=== PATIENT | male | born 1970 | race Hispanic/Latino ===

== ENCOUNTER 2019-02-22 22:10 | Emergency (ER) | payer BC ==
[2019-02-22] MEDS ORDERED: NA CHLORIDE 0.9% 1,000 ML ONE (23:09)
[2019-02-22 23:20] LABS: Absolute Lymphocytes (CBC) 2.9 K/uL (0.7-4.9); Basophils % 0.7 % (0-1.3); Lymphocytes % 21.4 % (15.3-44.8); RBC Red Blood Cell Count 6.04 M/uL (4.33-5.43)
[2019-02-22 23:22] LABS: Protime INR 1.01
[2019-02-22 23:43] LABS: ALT/SGPT 61 U/L (12-78); AST/SGOT 23 U/L (15-37); Albumin 4.4 g/dL (3.4-5.0); Alkaline Phosphatase 74 U/L (45-117); BUN Blood Urea Nitrogen 15 mg/dL (7-18); Bicarbonate 27 mmol/L (21-32); Bilirubin Direct 0.2 mg/dL (0-0.2); Bilirubin Total 0.6 mg/dL (0.2-1.0); Glucose Level 269 mg/dL (74-106); Magnesium 2.1 mg/dL (1.8-2.4); NT PRO-BNP 7 pg/mL (<125); Potassium 3.9 mmol/L (3.5-5.1); Protein, Total 8.4 g/dL (6.4-8.2); Sodium Level 138 mmol/L (136-145); Troponin (Emerg Dept Use Only) < 0.02 ng/mL (0.0-0.045)
--- NOTE | 2019-02-23 01:15 | ER ---
Nurse's Notes [facility] Name: Jere Khan Age: 48 yrs Sex: Male : 1970 Arrival Date: 02/22/2019 Time: 22:12 Bed 16 Private MD: Diagnosis: Essential (primary) hypertension;Dehydration Presentation: 02/22 22:22 Presenting complaint: Patient states: sudden onset of fatigue while at work. pt took BP ak1 at work 155/97. Transition of care: patient was not received from another setting of care. Onset of symptoms was February 22, 2019. Risk Assessment: Do you want to hurt yourself or someone else? Patient reports no desire to harm self or others. Initial Sepsis Screen: Does the patient meet any 2 criteria? No. Patient's initial sepsis screen is negative. Does the patient have a suspected source of infection? No. Patient's initial sepsis screen is negative. Care prior to arrival: None. 22:22 Method Of Arrival: Ambulatory ak1 22:22 Acuity: JAMAR 3 ak1 Triage Assessment: 22:23 General: Appears in no apparent distress. Behavior is calm, cooperative. Pain: Denies ak1 pain. Historical: - Allergies: 22:23 No Known Allergies; ak1 - Home Meds: 22:23 Metformin Oral [Active]; ak1 - PMHx: 22:23 Diabetes - NIDDM; ak1 - PSHx: 22:23 None; ak1 - Immunization history:: Adult Immunizations unknown. - Social history:: Smoking status: Patient/guardian denies using tobacco. - Ebola Screening: : No symptoms or risks identified at this time. Screenin:37 Abuse screen: Denies threats or abuse. Nutritional screening: No deficits noted. jd3 Tuberculosis screening: No symptoms or risk factors identified. Fall Risk Ambulatory Aid- None/Bed Rest/Nurse Assist (0 pts). Gait- Normal/Bed Rest/Wheelchair (0 pts) Mental Status- Oriented to own ability (0 pts). Total Marie Fall Scale indicates No Risk (0-24 pts). Assessment: 22:35 General: Appears in no apparent distress. uncomfortable, Behavior is calm, cooperative, jd3 appropriate for age, Reports high blood pressure. Pain: Denies pain. Neuro: Level of Consciousness is awake, alert, obeys commands, Oriented to person, place, time, situation, Denies weakness dizziness, headache. Cardiovascular: Denies chest pain, Heart tones S1 S2 present Capillary refill < 3 seconds Patient's skin is warm and dry. Respiratory: Airway is patent Respiratory effort is even, unlabored, Respiratory pattern is regular, symmetrical, Breath sounds are clear bilaterally. Denies cough, shortness of breath. GI: No signs and/or symptoms were reported involving the gastrointestinal system. Patient currently denies constipation, diarrhea, nausea, vomiting. : No signs and/or symptoms were reported regarding the genitourinary system. EENT: No signs and/or symptoms were reported regarding the EENT system. Derm: Skin is intact, Skin is dry, Skin is normal, Skin temperature is warm. Musculoskeletal: Circulation, motion, and sensation intact. Range of motion: intact in all extremities. 23:39 Reassessment: Patient appears in no apparent distress at this time. No changes from [facility] previously documented assessment. Patient and/or family updated on plan of care and expected duration. Pain level reassessed. Patient is alert, oriented x 3, equal unlabored respirations, skin warm/dry/pink. Patient denies pain at this time. 02/23 00:45 Reassessment: Patient appears in no apparent distress at this time. Patient and/or jd3 family updated on plan of care and expected duration. Pain level reassessed. Patient is alert, oriented x 3, equal unlabored respirations, skin warm/dry/pink. Patient denies pain at this time. 01:16 Reassessment: Patient appears in no apparent distress at this time. Patient and/or jd3 family updated on plan of care and expected duration. Pain level reassessed. Patient is alert, oriented x 3, equal unlabored respirations, skin warm/dry/pink. reported understanding of discharge instructions. Patient denies pain at this time. Vital Signs: 02/22 22:23 BP 154 / 93; Pulse 98; Resp 18; Temp 98.7(O); Pulse Ox 98% on R/A; Weight 95.25 kg (R); ak1 Height 5 ft. 10 in. (177.80 cm) (R); Pain 0/10; 22:37 BP 139 / 89; Pulse 98; Resp 17 S; Pulse Ox 97% on R/A; Pain 0/10; jd3 23:39 BP 149 / 95; Pulse 95; Resp 16 S; Pulse Ox 98% on R/A; jd3 02/23 00:08 BP 128 / 82 Supine; Pulse 86; jd3 00:08 BP 151 / 89 Sitting; Pulse 86; jd3 00:08 BP 155 / 95 Standing; Pulse 84; Resp 16 S; Pulse Ox 100% on R/A; jd3 02/22 22:23 Body Mass Index 30.13 (95.25 kg, 177.80 cm) ak1 ED Course: 02/22 22:12 Patient arrived in ED. ds1 22:22 Triage completed. ak1 22:23 Arm band placed on Patient placed in an exam room, on a stretcher, on pulse oximetry, ak1 Patient notified of wait time. 22:30 Lang Martines NP is PHCP. pm1 22:30 Mike Contreras MD is Attending Physician. pm1 22:34 Jorje Sharp RN is Primary Nurse. jd3 23:03 Inserted saline lock: 20 gauge in left antecubital area, using aseptic technique. Blood jd3 collected. 23:13 X-ray completed. Portable x-ray completed in exam room. Patient tolerated procedure kw well. 23:15 XRAY Chest (1 view) In Process Unspecified. EDMS 23:29 CT completed. Patient tolerated procedure well. Patient moved to CT via wheelchair. eh Patient moved back from CT. 23:36 CT Head Brain wo Cont In Process Unspecified. EDMS 23:41 Patient has correct armband on for positive identification. Bed in low position. Call jd3 light in reach. Side rails up X 1. Adult w/ patient. 02/23 01:15 No provider procedures requiring assistance completed. IV discontinued, intact, jd3 bleeding controlled, No redness/swelling at site. Pressure dressing applied. Administered Medications: 02/22 23:41 Drug: NS 0.9% 1000 ml Route: IV; Rate: 1000 ml; Site: left antecubital; jd3 02/23 01:17 Follow up: Response: No adverse reaction; IV Status: Completed infusion; IV Intake: jd3 1000ml Intake: 01:17 IV: 1000ml; Total: 1000ml. jd3 Outcome: 00:55 Discharge ordered by . pm1 01:15 Discharged to home ambulatory, with family. jd3 01:15 Condition: stable 01:15 Discharge instructions given to patient, family, Instructed on discharge instructions, follow up and referral plans. Demonstrated understanding of instructions, follow-up care. 01:17 Patient left the ED. jd3 Signatures: Dispatcher [employer] EDDave García Demi ds1 Asya Monroy Amber, RN RN ak1 Lang Maritnes, [employer] FACILITATOR pm1 Jorje Sharp RN RN jd3 Corrections: (The following items were deleted from the chart) 00:09 00:08 BP 155 / 95 Standing; Pulse 84bpm; jd3 jd3
--- NOTE | 2019-02-23 01:18 | EDPHYS ---
Physician Documentation [facility] Name: Jere Khan Age: 48 yrs Sex: Male : 1970 Arrival Date: 02/22/2019 Time: 22:12 Bed 16 Private MD: ED Physician Mike Contreras HPI: 02/22 22:54 This 48 yrs old Male presents to ER via Ambulatory with complaints of High pm1 Blood Pressure. 22:54 The patient has elevated blood pressure and discovered this At work. Onset: The pm1 symptoms/episode began/occurred just prior to arrival. Modifying factors: The symptoms are aggravated by activity, Working in the heat, The symptoms are alleviated by rest. Associated signs and symptoms: Pertinent positives: dizziness, Pertinent negatives: chest pain, headache, nausea, visual changes, vomiting. Severity of symptoms: in the emergency department the blood pressure is now normal. The blood pressure problem is resolved. The patient has not experienced similar symptoms in the past. The patient has not recently seen a physician. Patient works at the [employer]. Patient wearing his FRC and mask and was working out in the heat. Patient started feeling dizzy and fatigued. Went to the break room and discovered that his blood pressure was high. His symptoms have resolved with rest and with arrival to the ER. Historical: - Allergies: 22:23 No Known Allergies; ak1 - Home Meds: 22:23 Metformin Oral [Active]; ak1 - PMHx: 22:23 Diabetes - NIDDM; ak1 - PSHx: 22:23 None; ak1 - Immunization history:: Adult Immunizations unknown. - Social history:: Smoking status: Patient/guardian denies using tobacco. - Ebola Screening: : No symptoms or risks identified at this time. ROS: 22:54 Eyes: Negative for injury, pain, redness, and discharge, ENT: Negative for injury, pm1 pain, and discharge, Neck: Negative for injury, pain, and swelling, Cardiovascular: Negative for chest pain, palpitations, and edema, Respiratory: Negative for shortness of breath, cough, wheezing, and pleuritic chest pain, Abdomen/GI: Negative for abdominal pain, nausea, vomiting, diarrhea, and constipation, Back: Negative for injury and pain, : Negative for injury, bleeding, discharge, and swelling, MS/Extremity: Negative for injury and deformity, Skin: Negative for injury, rash, and discoloration. 22:54 Constitutional: Positive for fatigue, Negative for body aches, chills, fever. 22:54 Neuro: Positive for dizziness, Negative for headache, numbness, syncope, tingling, weakness. Exam: 22:54 Constitutional: This is a well developed, well nourished patient who is awake, alert, pm1 and in no acute distress. Head/Face: Normocephalic, atraumatic. Eyes: Pupils equal round and reactive to light, extra-ocular motions intact. Lids and lashes normal. Conjunctiva and sclera are non-icteric and not injected. Cornea within normal limits. Periorbital areas with no swelling, redness, or edema. ENT: Nares patent. No nasal discharge, no septal abnormalities noted. Tympanic membranes are normal and external auditory canals are clear. Oropharynx with no redness, swelling, or masses, exudates, or evidence of obstruction, uvula midline. Mucous membranes moist. Neck: Trachea midline, no thyromegaly or masses palpated, and no cervical lymphadenopathy. Supple, full range of motion without nuchal rigidity, or vertebral point tenderness. No Meningismus. Chest/axilla: Normal chest wall appearance and motion. Nontender with no deformity. No lesions are appreciated. Cardiovascular: Regular rate and rhythm with a normal S1 and S2. No gallops, murmurs, or rubs. Normal PMI, no JVD. No pulse deficits. Respiratory: Lungs have equal breath sounds bilaterally, clear to auscultation and percussion. No rales, rhonchi or wheezes noted. No increased work of breathing, no retractions or nasal flaring. Abdomen/GI: Soft, non-tender, with normal bowel sounds. No distension or tympany. No guarding or rebound. No evidence of tenderness throughout. Back: No spinal tenderness. No costovertebral tenderness. Full range of motion. Skin: Warm, dry with normal turgor. Normal color with no rashes, no lesions, and no evidence of cellulitis. MS/ Extremity: Pulses equal, no cyanosis. Neurovascular intact. Full, normal range of motion. 22:54 Neuro: Orientation: is normal, Motor: moves all fours, Sensation: is normal, no obvious gross deficits. Vital Signs: 22:23 BP 154 / 93; Pulse 98; Resp 18; Temp 98.7(O); Pulse Ox 98% on R/A; Weight 95.25 kg (R); ak1 Height 5 ft. 10 in. (177.80 cm) (R); Pain 0/10; 22:37 BP 139 / 89; Pulse 98; Resp 17 S; Pulse Ox 97% on R/A; Pain 0/10; jd3 23:39 BP 149 / 95; Pulse 95; Resp 16 S; Pulse Ox 98% on R/A; jd3 02/23 00:08 BP 128 / 82 Supine; Pulse 86; jd3 00:08 BP 151 / 89 Sitting; Pulse 86; jd3 00:08 BP 155 / 95 Standing; Pulse 84; Resp 16 S; Pulse Ox 100% on R/A; jd3 02/22 22:23 Body Mass Index 30.13 (95.25 kg, 177.80 cm) ak1 MDM: 02/22 22:30 Patient medically screened. pm1 02/23 00:21 Data reviewed: vital signs. Data interpreted: Pulse oximetry: on room air is 100 %. pm1 Interpretation: normal. Counseling: I had a detailed discussion with the patient and/or guardian regarding: the historical points, exam findings, and any diagnostic results supporting the discharge/admit diagnosis, lab results, the need for outpatient follow up, to return to the emergency department if symptoms worsen or persist or if there are any questions or concerns that arise at home. 02/22 22:54 Order name: Basic Metabolic Panel; Complete Time: 23:54 pm1 02/22 22:54 Order name: CBC with Diff; Complete Time: 23:54 pm1 02/22 22:54 Order name: LFT's; Complete Time: 23:54 pm1 02/22 22:54 Order name: Magnesium; Complete Time: 23:54 pm1 02/22 22:54 Order name: NT PRO-BNP; Complete Time: 23:54 pm1 02/22 22:54 Order name: PT-INR; Complete Time: 23:54 pm1 02/22 22:54 Order name: Troponin (emerg Dept Use Only); Complete Time: 23:54 pm1 02/22 22:54 Order name: XRAY Chest (1 view) pm1 02/22 22:54 Order name: EKG; Complete Time: 22:55 pm1 02/22 22:54 Order name: Cardiac monitoring; Complete Time: 23:17 pm02/22 22:54 Order name: EKG - Nurse/Tech; Complete Time: 23:08 pm02/22 22:54 Order name: IV Saline Lock; Complete Time: 23:08 pm02/22 22:54 Order name: CT Head Brain wo Cont pm1 02/22 22:54 Order name: Labs collected and sent; Complete Time: 23:08 pm02/22 22:54 Order name: O2 Per Protocol; Complete Time: 22:54 pm02/22 22:54 Order name: O2 Sat Monitoring; Complete Time: :54 pm02/22 22:54 Order name: Orthostatic Blood Pressure; Complete Time: 00:10 pm1 Administered Medications: 02/22 23:41 Drug: NS 0.9% 1000 ml Route: IV; Rate: 1000 ml; Site: left antecubital; jd3 02/23 01:17 Follow up: Response: No adverse reaction; IV Status: Completed infusion; IV Intake: jd3 1000ml Disposition: 09:40 Co-signature as Attending Physician, Mike Contreras MD I agree with the assessment and miguelina plan of care. Disposition: 02/23/19 00:55 Discharged to Home. Impression: Essential (primary) hypertension, Dehydration. - Condition is Stable. - Discharge Instructions: Dehydration, Adult, Hypertension, Heat Exhaustion Information, How to Take Your Blood Pressure, [id number], DASH Eating Plan, Rehydration, Adult, Managing Your Hypertension. - Work release form, Medication Reconciliation Form, Thank You Letter, Antibiotic Education, Prescription Opioid Use form. - Follow up: Emergency Department; When: As needed; Reason: Worsening of condition. Follow up: Private Physician; When: 2 - 3 days; Reason: Recheck today's complaints, Continuance of care, Re-evaluation by your physician. - Problem is new. - Symptoms have improved. Signatures: Dispatcher [employer] Mike Roberts MD MD cha Krenek, Amber, RN RN ak1 Lang Martines, FLOOR POLISHER FLOOR POLISHER pm1 Jorje Sharp, RN RN jd3 Corrections: (The following items were deleted from the chart) 01:17 00:55 02/23/2019 00:55 Discharged to Home. Impression: Essential (primary) jd3 hypertension; Dehydration. Condition is Stable. Forms are Medication Reconciliation Form, Thank You Letter, Antibiotic Education, Prescription Opioid Use. Follow up: Emergency Department; When: As needed; Reason: Worsening of condition. Follow up: Private Physician; When: 2 - 3 days; Reason: Recheck today's complaints, Continuance of care, Re-evaluation by your physician. Problem is new. Symptoms have improved. pm1
[2019-02-23 02:27] VITALS: TEMP 98.7
[2019-02-23 02:32] VITALS: BP 155/95; O2SAT 100
--- NOTE | 2019-02-23 07:45 | EKG ---
Test Date: 2019-02-23 Test Time: 00:00:04 Pump Installation And Servicer: QAMAR MEASUREMENT RESULTS: Intervals: Rate: 83 NM: 144 QRSD: 84 QT: 388 QTc: 455 [place]: P: 49 NM: 144 QRS: 72 T: -5 INTERPRETIVE STATEMENTS: Normal sinus rhythm Normal ECG No previous ECG available for comparison Electronically Signed On 02-23-19 07:44:12 CDT by Ganesh May
--- NOTE | 2019-02-23 08:04 | RAD REPORT ---
EXAM DESCRIPTION: RAD - Chest Single View - 02/22/2019 11:15 pm CLINICAL HISTORY: dizziness Chest pain. COMPARISON: No comparisons FINDINGS: Portable technique limits examination quality. The lungs are grossly clear. The heart is normal in size. No displaced fractures. IMPRESSION: No acute intrathoracic process suspected.
--- NOTE | 2019-02-23 10:33 | RAD REPORT ---
EXAM DESCRIPTION: Head Brain Wo Cont CLINICAL HISTORY: 48 years Male DIZZINESS COMPARISON: None TECHNIQUE: Contiguous axial images of the brain were obtained without the administration of intraven ous contrast.This exam was performed according to our departmental dose-optimization program which in cludes use of Automated Exposure Control, adjustment of the mA and/or kV according to patient size an d/or use of iterative reconstruction technique. FINDINGS: Brain: No acute intracranial hemorrhage. No extra-axial collection. No mass effect or komal iation. Mild prominence of the sulci and cisterns Ventricles: Within normal limits in size. Globes and orbits: No acute abnormality. Bones: No acute osseous finding. Paranasal sinuses: Paranasal sinuses are clear. Mastoid air cells: Well pneumatized. Soft tissues: Left parietal scalp soft tissue defect. IMPRESSION: No acute intracranial hemorrhage, hydrocephalus or herniation. Mild cerebral volume loss, more than expected for patient's age. Electronically signed by: Ky George DO 02/22/2019 11:42 PM CDT Due to temporary technical issues with the PACS/Fluency reporting system, reports are being signed by the in house radiologist as a courtesy to ensure prompt reporting. The interpreting radiologist is f ully responsible for the content of the report.
== END 2019-02-23 01:17 | disposition home or self-care (01) ==
LOC: ER 22:10
DX: I10 Essential (primary) hypertension (principal); E86.0 Dehydration; E11.9 Type 2 diabetes mellitus without complications
CPT/HCPCS: 93005; 85025; 80048; 36415; 83735; 85610; 80076; 84484; 83880; 70450; 71045; J7030; 96360; 96361; 99284

== ENCOUNTER 2021-08-01 20:30 | Emergency (ER) | payer BC ==
[2021-08-01] MEDS ORDERED: ASPIRIN 81 MG CHEWABLE TABLET ONE (20:51)
[2021-08-01 21:03] LABS: Absolute Lymphocytes (CBC) 2.5 K/uL (0.7-4.9); Hematocrit 47.3 % (39.6-49.0); MPV 7.7 fL (7.6-11.3); RBC Red Blood Cell Count 5.55 M/uL (4.33-5.43)
[2021-08-01] MEDS ORDERED: TENECTEPLASE 50 MG/10 ML VIAL IV ONE (21:04)
--- NOTE | 2021-08-01 21:35 | RAD REPORT ---
EXAM DESCRIPTION: Nerissa Single View08/01/2021 9:26 pm CLINICAL HISTORY: Chest pain COMPARISON: 2018 FINDINGS: The lungs appear clear of acute infiltrate. The heart is normal size IMPRESSION: No acute abnormalities displayed
--- NOTE | 2021-08-01 21:35 | EDPHYS ---
Physician Documentation [facility] Name: Jere Khan Age: 51 yrs Sex: Male : 1970 Arrival Date: 08/01/2021 Time: 20:33 Bed 6 Private MD: Tra You E ED Physician Stefano Mccray HPI: 08/01 20:47 This 51 yrs old Male presents to ER via Ambulatory with complaints of Chest jmm Pain, Arm Pain. 20:47 The patient or guardian reports chest pain that is located primarily in the substernal [facility] area. Onset: acutely, 1 hour(s) ago. The pain radiates to the right arm. Associated signs and symptoms: Pertinent negatives: abdominal pain, cough, shortness of breath. This is a 51-year-old male with history of his, hypertension the presents emerged department with complaints of substernal chest pain beginning approximately 1 hour prior to arrival. Patient states he was drinking this evening and had an episode of vomiting. States he felt an air bubble in his chest but this progressed to worse pain then developing right arm pain and paresthesias. Denies abdominal pain or back pain. Denies previous CAD. Historical: - Allergies: 20:47 No Known Allergies; vc1 - Home Meds: 20:47 lisinopril 10 mg Oral tab [Active]; glipizide 10 mg Oral tab [Active]; Metformin Oral vc1 [Active]; - PMHx: 20:47 Diabetes - NIDDM; Hypertensive disorder; vc1 - Immunization history:: Adult Immunizations up to date, Client reports having NOT received the Covid vaccine. Flu vaccine is not up to date. It has been more than one year since last vaccine. - Social history:: Smoking status: Patient denies any tobacco usage or history of. Patient uses alcohol, Drank "quite a lot tonight". ROS: 20:47 Constitutional: Negative for fever, chills, and weight loss. jmm 20:47 Respiratory: Negative for shortness of breath, cough, wheezing, and pleuritic chest pain. 20:47 Cardiovascular: Positive for chest pain. 20:47 Abdomen/GI: Positive for nausea and vomiting. 20:47 Back: Negative for pain at rest. 20:47 MS/extremity: Positive for pain. 20:47 All other systems are negative. Exam: 20:47 Constitutional: This is a well developed, well nourished patient who is awake, alert, jmm and in no acute distress. Head/Face: atraumatic. Eyes: EOMI, no conjunctival erythema appreciated ENT: Moist Mucus Membranes Neck: Trachea midline, Supple Chest/axilla: Normal chest wall appearance and motion. 20:47 Cardiovascular: Rate: normal, Rhythm: regular. 20:47 Respiratory: the patient does not display signs of respiratory distress, Respirations: normal, Breath sounds: are clear throughout. 20:47 Abdomen/GI: Inspection: abdomen appears normal, Bowel sounds: normal, Palpation: soft, nontender, in all quadrants. 20:47 Back: ROM is normal. 20:47 Musculoskeletal/extremity: ROM: intact in all extremities. 20:47 Skin: Appearance: Color: normal in color. 20:47 Neuro: Orientation: is normal, Mentation: Memory: is normal. 20:47 Psych: Behavior/mood is pleasant, cooperative. 21:31 ECG was reviewed by the Attending Physician. [facility] Vital Signs: 20:46 Pulse 86; Resp 24; Pulse Ox 100% on R/A; Weight 100.7 kg; Height 5 ft. 10 in. (177.80 vc1 cm); 21:00 BP 175 / 104; Pulse 95; Resp 19; Pulse Ox 100% on R/A; mk 21:18 BP 175 / 104; Pulse 87; Resp 18; Pulse Ox 100% on R/A; sm5 21:30 BP 169 / 92; Pulse 89; Resp 18; Pulse Ox 100% on R/A; ld1 21:45 BP 165 / 104; Pulse 86; Resp 18; Pulse Ox 100% on R/A; mk 22:00 BP 168 / 94; Pulse 81; Resp 18; Pulse Ox 100% on R/A; ld1 20:46 Body Mass Index 31.85 (100.70 kg, 177.80 cm) vc1 Monique Coma Score: 21:00 Eye Response: spontaneous(4). Verbal Response: oriented(5). Motor Response: obeys mk commands(6). Total: 15. 21:18 Eye Response: spontaneous(4). Verbal Response: oriented(5). Motor Response: obeys mk commands(6). Total: 15. 21:30 Eye Response: spontaneous(4). Verbal Response: oriented(5). Motor Response: obeys mk commands(6). Total: 15. 21:45 Eye Response: spontaneous(4). Verbal Response: oriented(5). Motor Response: obeys mk commands(6). Total: 15. 22:00 Eye Response: spontaneous(4). Verbal Response: oriented(5). Motor Response: obeys mk commands(6). Total: 15. MDM: 20:[address] [facility] 21:32 The patient was given aspirin in the Emergency Department. Data reviewed: vital signs, [facility] nurses notes. Counseling: I had a detailed discussion with the patient and/or guardian regarding: the historical points, exam findings, and any diagnostic results supporting the discharge/admit diagnosis, the need to transfer to another facility. ED course: I discussed the patient with cardiology and [facility] in the [facility]. Recommended administration of tenecteplase. 50 mg IV given. . 08/01 20:48 Order name: Basic Metabolic Panel; Complete Time: 21: [facility] 08/01 20:48 Order name: CBC with Diff; Complete Time: 21: [facility] 08/01 20:48 Order name: LFT's; Complete Time: 21:[address] [facility] 08/01 20:48 Order name: Magnesium; Complete Time: : [facility] 08/01 20:48 Order name: NT PRO-BNP; Complete Time: : 08/01 20:48 Order name: PT-INR; Complete Time: 21: [facility] 08/01 20:48 Order name: Troponin HS; Complete Time: 21:[address] [facility] 08/01 20:48 Order name: XRAY Chest (1 view); Complete Time: 21:[address] [facility] 08/01 21:10 Order name: COVID-19/FLU A+B (Document "Date of Onset" if Symptomatic); Complete Time: mw2 23:13 08/01 20:48 Order name: EKG; Complete Time: 20:[address] [facility] 08/01 20:48 Order name: Cardiac monitoring; Complete Time: 20:[address] [facility] 08/01 20:48 Order name: EKG - Nurse/Tech; Complete Time: 20:[address] [facility] 08/01 20:48 Order name: IV Saline Lock; Complete Time: 20:[address] [facility] 08/01 20:48 Order name: Labs collected and sent; Complete Time: 20:[address] [facility] 08/01 20:48 Order name: O2 Per Protocol; Complete Time: 20:[address] [facility] 08/01 20:48 Order name: O2 Sat Monitoring; Complete Time: 20:53 jm EC:47 Rate is 83 beats/min. Rhythm is regular. QRS [place] is Normal. TN interval is normal. QRS jmm interval is normal. QT interval is normal. No Q waves. ST Segment is elevated in leads I, aVL, V2. ST Segment is depressed in leads II, III, aVF. Reviewed by me. Administered Medications: 20:50 Drug: Aspirin Chewable Tablet 324 mg Route: PO; sm5 21:03 CANCELLED (Duplicate Order): Activase 15 mg IV at calculated rate once; administer over jmm 1-2 mins 21:03 CANCELLED (Duplicate Order): Activase 50 mg IV at calculated rate once; administer over jmm 30 mins 21:03 CANCELLED (Duplicate Order): Activase 35 mg IV at calculated rate once; administer over jmm 60 mins 21:10 Drug: Tenecteplase 50 mg {Co-Signature: williams (Cristal Vera RN).} Route: IV; Rate: sm5 calculated rate; Site: right antecubital; Disposition: 08/02 00:31 Co-signature as Attending Physician, Stefano Mccray MD. pkl Disposition Summary: 08/01/21 21:35 Transfer Ordered Transfer Location: [facility] Reason: Higher level of care jmm Condition: Stable jmm Problem: new jmm Symptoms: have improved jmm Accepting Physician: Cardiology at [facility](08/01/21 22:26) ld1 Diagnosis - ST elevation (STEMI) myocardial infarction involving other sites jmm Forms: - Medication Reconciliation Form jmm - SBAR form jmm Signatures: Dispatcher [employer] Stefano Montes MD MD pkl Prakash Sarabia PA PA jmm Lois Chavira RN RN ld1 Hanny Oreilly RN RN sm5 Ximena Jose RN RN vc1 Cristal kramer Corrections: (The following items were deleted from the chart) 08/01 21:03 20:59 Activase 15 mg IV at calculated rate once; administer over 1-2 mins ordered. farida iqbal 21:03 20:59 Activase 50 mg IV at calculated rate once; administer over 30 mins ordered. farida iqbal :03 20:59 Activase 35 mg IV at calculated rate once; administer over 60 mins ordered. farida iqbal 22:26 21:[address] [facility] farida ld1
--- NOTE | 2021-08-01 21:35 | ER ---
Nurse's Notes [facility] Name: Jere Khan Age: 51 yrs Sex: Male : 1970 Arrival Date: 08/01/2021 Time: 20:33 Bed 6 Private MD: Tra You E Diagnosis: ST elevation (STEMI) myocardial infarction involving other sites Presentation: 08/01 20:39 Chief complaint: Patient states: I'm having chest pain and right arm pain. vc1 20:46 Chief complaint: Patient states: I also started vomiting. Coronavirus screen: Vaccine vc1 status: Patient reports being unvaccinated. Ebola Screen: No symptoms or risks identified at this time. Initial Sepsis Screen: Does the patient meet any 2 criteria? RR > 20 per min. Does the patient have a suspected source of infection? No. Patient's initial sepsis screen is negative. Risk Assessment: Do you want to hurt yourself or someone else? Patient reports no desire to harm self or others. Onset of symptoms was August 01, 2021 at 19:30. 20:46 Method Of Arrival: Ambulatory vc1 20:46 Acuity: JAMAR 2 vc1 Triage Assessment: 20:47 General: Appears in no apparent distress. uncomfortable, Behavior is cooperative, vc1 appropriate for age, anxious. Pain: Complains of pain in chest Pain radiates to right arm Also complains of nausea, vomiting. Cardiovascular: Reports chest pain, nausea, vomiting, Patient's skin is warm and dry. Historical: - Allergies: 20:47 No Known Allergies; vc1 - Home Meds: 20:47 lisinopril 10 mg Oral tab [Active]; glipizide 10 mg Oral tab [Active]; Metformin Oral vc1 [Active]; - PMHx: 20:47 Diabetes - NIDDM; Hypertensive disorder; vc1 - Immunization history:: Adult Immunizations up to date, Client reports having NOT received the Covid vaccine. Flu vaccine is not up to date. It has been more than one year since last vaccine. - Social history:: Smoking status: Patient denies any tobacco usage or history of. Patient uses alcohol, Drank "quite a lot tonight". Screenin:25 Abuse screen: Denies threats or abuse. Denies injuries from another. Nutritional ld1 screening: No deficits noted. Tuberculosis screening: No symptoms or risk factors identified. Fall Risk None identified. Assessment: 20:54 General: Appears in no apparent distress. Behavior is appropriate for age. Pain: sm5 Complains of pain in right arm and chest Pain began 2 hours ago. Neuro: No deficits noted. Level of Consciousness is awake, alert, Oriented to person, place, time, situation. Cardiovascular: Reports chest pain, vomiting, Capillary refill < 3 seconds Patient's skin is warm and dry. 21:00 General: Appears in no apparent distress. Behavior is appropriate for age. Pain: mk Complains of pain in chest Pain does not radiate. Pain currently is 8 out of 10 on a pain scale. Quality of pain is described as aching, Pain began 1 hour ago. Is continuous. Neuro: Level of Consciousness is awake, alert, obeys commands, Oriented to person, place, time, situation, Fastener Technologist are equal bilaterally Moves all extremities. Gait is steady, Speech is normal, Facial symmetry appears normal, Pupils are PERRLA, Pupil Size: 4 bilaterally. Cardiovascular: Heart tones S1 S2 present Capillary refill < 3 seconds in bilateral fingers toes JVD is absent Patient's skin is warm and dry. Pulses are 2+ in right radial artery, right dorsalis pedis artery, left radial artery and left dorsalis pedis artery Rhythm is sinus rhythm. Respiratory: Airway is patent Trachea midline Respiratory effort is even, unlabored, Respiratory pattern is regular, symmetrical. GI: Abdomen is flat, non-distended, Bowel sounds present X 4 quads. : No signs and/or symptoms were reported regarding the genitourinary system. Derm: Skin is intact, is healthy with good turgor, Skin is diaphoretic, Skin temperature is warm. Musculoskeletal: Circulation, motion, and sensation intact. Capillary refill < 3 seconds, in bilateral fingers. toes. Range of motion:. 21:30 Reassessment: Patient appears in no apparent distress at this time. No changes from ld1 previously documented assessment. Patient and/or family updated on plan of care and expected duration. Pain level reassessed. 22:25 Reassessment: Patient appears in no apparent distress at this time. No changes from ld1 previously documented assessment. Patient and/or family updated on plan of care and expected duration. Pain level reassessed. Patient is alert, oriented x 3, equal unlabored respirations, skin warm/dry/pink. 22:25 Reassessment: Life flight at bedside. ld1 Vital Signs: 20:46 Pulse 86; Resp 24; Pulse Ox 100% on R/A; Weight 100.7 kg; Height 5 ft. 10 in. (177.80 vc1 cm); 21:00 BP 175 / 104; Pulse 95; Resp 19; Pulse Ox 100% on R/A; mk 21:18 BP 175 / 104; Pulse 87; Resp 18; Pulse Ox 100% on R/A; sm5 21:30 BP 169 / 92; Pulse 89; Resp 18; Pulse Ox 100% on R/A; ld1 21:45 BP 165 / 104; Pulse 86; Resp 18; Pulse Ox 100% on R/A; mk 22:00 BP 168 / 94; Pulse 81; Resp 18; Pulse Ox 100% on R/A; ld1 20:46 Body Mass Index 31.85 (100.70 kg, 177.80 cm) vc1 Monique Coma Score: 21:00 Eye Response: spontaneous(4). Verbal Response: oriented(5). Motor Response: obeys mk commands(6). Total: 15. 21:18 Eye Response: spontaneous(4). Verbal Response: oriented(5). Motor Response: obeys mk commands(6). Total: 15. 21:30 Eye Response: spontaneous(4). Verbal Response: oriented(5). Motor Response: obeys mk commands(6). Total: 15. 21:45 Eye Response: spontaneous(4). Verbal Response: oriented(5). Motor Response: obeys mk commands(6). Total: 15. 22:00 Eye Response: spontaneous(4). Verbal Response: oriented(5). Motor Response: obeys mk commands(6). Total: 15. ED Course: 20:33 Patient arrived in ED. es 20:33 Tra You MD is Private Physician. es 20:42 Prakash Sarabia PA is PHCP. jmm 20:42 Stefano Mccray MD is Attending Physician. jmm 20:47 Triage completed. vc1 20:49 Arm band placed on right wrist. Patient placed in an exam room, on a stretcher, on vc1 monitor tech, on pulse oximetry. 20:52 Hanny Oreilly, DANIEL is Primary Nurse. sm5 20:53 Basic Metabolic Panel Sent. sm5 20:53 CBC with Diff Sent. sm5 20:53 LFT's Sent. sm5 20:53 Magnesium Sent. sm5 20:53 NT PRO-BNP Sent. sm5 20:53 PT-INR Sent. sm5 20:53 Troponin HS Sent. sm5 20:53 Inserted saline lock: 18 gauge in right antecubital area, using aseptic technique. sm5 Blood collected. 20:54 Inserted saline lock: 18 gauge in left antecubital area, using aseptic technique. sm5 21:06 initiated a transfer with Leonor from [facility]. 2 21:24 connected Prakash Sarabia with the Geology Technician from [facility]. 2 21:26 XRAY Chest (1 view) In Process Unspecified. EDMS 21:48 Notified ED physician of a critical lab result(s). Troponin 139.3. tw5 21:56 administrative approval given by Leonor/ patient has been accepted to [facility] to [facility] the ER/ Dr. Barnard accepted the patient in transfer/ report to be called to [phone]. 22:25 Patient has correct armband on for positive identification. Placed in gown. Bed in low ld1 position. Call light in reach. Side rails up X2. patient monitor on. Pulse ox on. NIBP on. Door closed. Noise minimized. Warm blanket given. 22:25 No provider procedures requiring assistance completed. Patient transferred, IV remains ld1 in place. Patient maintains SpO2 saturation greater than 95% on room air. Administered Medications: 20:50 Drug: Aspirin Chewable Tablet 324 mg Route: PO; sm5 21:03 CANCELLED (Duplicate Order): Activase 15 mg IV at calculated rate once; administer over jmm 1-2 mins 21:03 CANCELLED (Duplicate Order): Activase 50 mg IV at calculated rate once; administer over jmm 30 mins 21:03 CANCELLED (Duplicate Order): Activase 35 mg IV at calculated rate once; administer over jmm 60 mins 21:10 Drug: Tenecteplase 50 mg {Co-Signature: williams (Cristal Vera RN).} Route: IV; Rate: sm5 calculated rate; Site: right antecubital; Outcome: 21:35 ER care complete, transfer ordered by MD. iqbal 22:26 Transferred by helicopter to [facility]. ld1 22: Condition: stable 22:26 Instructed on the need for transfer. 22:26 Patient left the ED. ld1 Signatures: Dispatcher [employer] EDPrakash Araujo PA PA jmm Salyer, Edna es [place], MyKena mw2 Lois Chavira RN RN ld1 Mary Elkins 5 Hanny Oreilly RN RN 5 Jody, DANIEL Bee RN, Vanessa, RN RN vc1 Cristal kramer
[2021-08-01 21:44] LABS: ALT/SGPT 62 U/L (12-78); AST/SGOT 22 U/L (15-37); Albumin 3.8 g/dL (3.4-5.0); Alkaline Phosphatase 57 U/L (45-117); BUN Blood Urea Nitrogen 11 mg/dL (7-18); Bicarbonate 28 mmol/L (21-32); Bilirubin Direct < 0.1 mg/dL (0-0.2); Bilirubin Total 0.3 mg/dL (0.2-1.0); Glucose Level 292 mg/dL (74-106); Protein, Total 8.2 g/dL (6.4-8.2); Sodium Level 136 mmol/L (136-145)
[2021-08-01 21:48] LABS: NT PRO-BNP < 5 pg/mL (<125)
[2021-08-01 22:07] LABS: SARS-COV-2 RT PCR NEGATIVE (NEGATIVE)
[2021-08-01] MEDS ORDERED: ONDANSETRON 4 MG/2 ML VIAL ONE (22:17)
[2021-08-01 22:44] VITALS: O2SAT 100
[2021-08-01 22:48] VITALS: BP 168/94
== END 2021-08-01 22:26 | disposition short-term general hospital (02) ==
LOC: ER 20:30
DX: I21.29 ST elevation (STEMI) myocardial infarction involving other sites (principal); Z20.822 Contact with and (suspected) exposure to COVID-19; E11.9 Type 2 diabetes mellitus without complications; I10 Essential (primary) hypertension
CPT/HCPCS: 92977; 93005 ×2; 85025; 80048; 36415; 83735; 85610; 80076; 84484; 83880; 0240U; 71045; 96374; 99285; J3101; J2405